=== PATIENT | female | born 1960 | race Caucasian/White ===

== ENCOUNTER 2022-08-08 13:23 | Outpatient (CLI) | payer OTHER, SELFPAY ==
[2022-08-08 21:40] LABS: Chloride* 99 mmol/L (96-114); Potassium* 4.1 mmol/L (3.6-5.1); Sodium* 140 mmol/L (135-149)
[2022-08-08 21:42] LABS: Aspartate Amino Transferase* 33 U/L (12-35); Bilirubin Total* 0.6 mg/dL (0.1-1.5); Carbon Dioxide* 32 mmol/L (20-32); Creatinine* 0.5 mg/dL (0.5-1.5); Estimated Glomerular Filt Rate 105 ml/min; Total Protein* 7.9 g/dL (6.0-8.3)
[2022-08-08 21:43] LABS: Alanine Aminotransferase* 24 U/L (4-35); Alkaline Phosphatase* 75 U/L (40-150); Blood Urea Nitrogen* 9 mg/dL (7-30); Calcium* 9.9 mg/dL (8.4-10.6); Glucose* 104 mg/dL (60-115)
[2022-08-10 23:27] LABS: Rheumatoid Factor <10 IU/mL (0-14)
[2022-08-11 08:25] LABS: Anti-Nuclear Ab(ANA)IgG ELISA Detected (None Detected)
[2022-08-13 01:28] LABS: ANA Pattern Speckled; Antinuclear AntibodyHEp-2 Detected (<1:80)
[2022-08-14 14:30] LABS: Cholesterol* 232 mg/dL (90-199); Triglycerides* 91 mg/dL (40-149)
[2022-08-14 14:31] LABS: HDL Cholesterol* 83 mg/dL (>=50); LDL Cholesterol Calculated 131 mg/dL (<100)
== END 2022-08-08 13:24 | disposition home or self-care (01) ==
PROVIDERS: PCP Family Medicine; Visit Provider Family Medicine
DX: Z01.419 Encounter for gynecological examination (general) (routine) without abnormal findings (principal); E04.1 Nontoxic single thyroid nodule; M25.50 Pain in unspecified joint; R68.89 Other general symptoms and signs; Z13.6 Encounter for screening for cardiovascular disorders
CPT/HCPCS: 80053; 80061; 84443; 86039; 86200; 86431

== ENCOUNTER 2022-08-13 08:57 | Outpatient (CLI) | payer OTHER, SELFPAY ==
--- NOTE | 2022-08-13 09:15 | CRLHL7_ITS ---
For Patients: As a result of the Century Cures Act, medical imaging exams and procedure reports are released immediately into your electronic medical record. You may view this report before your referring provider. If you have questions, please contact your health care provider. INDICATION: ADENOPATHY LEFT NECK, THYROID NODULE COMPARISON: 06/29/2021, 02/04/2017 TECHNIQUE: Lee scale and color Doppler images were acquired of the thyroid gland. FINDINGS: The thyroid gland demonstrates normal uniform echogenicity and has a smooth outer contour. The right lobe measures 4.1 x 1.5 x 1.6 cm and the left lobe measures 4.4 x 1.3 x 1.4 cm in size. Isthmus measures 1 millimeter. There are no suspicious masses or nodules. Incidental hypoechoic nodule inferior pole left thyroid lobe measuring 4 x 3 x 4 millimeters. The color Doppler images demonstrate normal vascularity. There is no evidence of cervical lymphadenopathy or parathyroid mass. IMPRESSION: No suspicious thyroid nodule. No cervical adenopathy. Incidental prominence of the carotid bulb noted on the left. Dictated by Toby Obregon MD @ 08/13/2022 10:33:18 AM (Electronically Signed)
== END 2022-08-13 08:58 | disposition home or self-care (01) ==
LOC: US 08:59
PROVIDERS: PCP Family Medicine; Visit Provider Family Medicine
DX: E04.1 Nontoxic single thyroid nodule (principal)
CPT/HCPCS: 76536

== ENCOUNTER 2022-12-13 15:44 | Outpatient (CLI) | payer OTHER, SELFPAY ==
--- NOTE | 2022-12-13 16:00 | CRLHL7_ITS ---
For Patients: As a result of the Cures Act, medical imaging exams and procedure reports are released immediately into your electronic medical record. You may view this report before your referring provider. If you have questions, please contact your health care provider. Indication: Sinusitis. Technique: Noncontrast axial CT of the paranasal sinuses with coronal reformats are provided. Compared to prior study from May 23, 2020. Findings: The visualized paranasal sinuses are clear. The ostiomeatal complexes are patent bilaterally. Incidental bilateral michelle bullosa. Minimal leftward nasal septal deviation. 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 The visualized intraorbital contents appear within normal limits. Impression: 1. Stable minimal leftward nasal septal deviation with evidence of perforation of the anterior nasal septum. 2. Otherwise, unremarkable CT of the paranasal sinuses. Please note that all CT scans at this facility use dose modulation, iterative reconstruction, and/or weight-based dosing when appropriate to reduce radiation dose to as low as reasonably achievable. Dictated by Holger Abernathy MD @ 12/14/2022 12:52:22 PM (Electronically Signed)
== END 2022-12-13 15:45 | disposition home or self-care (01) ==
LOC: CT 15:45
PROVIDERS: PCP Family Medicine; Visit Provider Family Medicine
DX: J32.9 Chronic sinusitis, unspecified (principal); J34.2 Deviated nasal septum
CPT/HCPCS: 70486

== ENCOUNTER 2022-12-31 14:00 | Outpatient (CLI) | payer OTHER, SELFPAY | END 2022-12-31 14:01 | disposition home or self-care (01) | LOC: NFLDREF 01-03 12:25 | PROVIDERS: PCP Family Medicine; Referring Provider Family Medicine; Visit Provider Family Medicine | DX: E78.00 Pure hypercholesterolemia, unspecified (principal) | CPT/HCPCS: 80061; 84460 ==

== ENCOUNTER 2023-10-13 10:11 | Outpatient (CLI) | payer OTHER, SELFPAY | END 2023-10-13 10:12 | disposition home or self-care (01) | PROVIDERS: PCP Family Medicine; Visit Provider Family Medicine | DX: Z00.00 Encounter for general adult medical examination without abnormal findings (principal); E78.00 Pure hypercholesterolemia, unspecified; I73.00 Raynaud's syndrome without gangrene | CPT/HCPCS: 80053; 80061 ==

== ENCOUNTER 2023-11-21 15:30 | Outpatient (CLI) | payer BC, SELFPAY | END 2023-11-21 15:31 | disposition home or self-care (01) | LOC: NFLDREF 11-26 11:25 | PROVIDERS: PCP Family Medicine; Referring Provider Family Medicine; Visit Provider Family Medicine | DX: R76.8 Other specified abnormal immunological findings in serum (principal) | CPT/HCPCS: 80061; 80076 ==

== ENCOUNTER 2023-12-04 08:10 | Outpatient (CLI) | payer BC, SELFPAY ==
--- NOTE | 2023-12-04 08:15 | CRLHL7_ITS ---
For Patients: As a result of the Century Cures Act, medical imaging exams and procedure reports are released immediately into your electronic medical record. You may view this report before your referring provider. If you have questions, please contact your health care provider. CLINICAL HISTORY: Left lower quadrant pain TECHNIQUE: 2D gooden scale ultrasound. In addition color Doppler and spectral Doppler analysis was performed of the pelvis using a transabdominal approach. Comparison 08/13/2018 FINDINGS: The uterus is absent. The right ovary measures 3.5 x 2.1 x 3.2 cm in size and the left ovary measures 1.8 x 1.4 x 1.6 cm. The ovaries demonstrate normal arterial and venous blood flow on color Doppler and spectral Doppler analysis. There are no suspicious fluid collections within the cul-de-sac. Simple cyst right ovary measuring 1.9 x 1.6 x 1.6 cm. IMPRESSION: Simple right ovarian cyst measuring 1.9 cm. Unremarkable left ovary. No torsion. No excess pelvic free fluid. Dictated by Toby Obregon MD @ 12/04/2023 1:44:54 PM (Electronically Signed)
== END 2023-12-04 08:11 | disposition home or self-care (01) ==
LOC: US 08:11
PROVIDERS: PCP Family Medicine; Visit Provider Family Medicine
DX: R10.32 Left lower quadrant pain (principal); N83.201 Unspecified ovarian cyst, right side
CPT/HCPCS: 76857; 93976

== ENCOUNTER 2024-01-08 15:19 | Outpatient (CLI) | payer BC, SELFPAY ==
--- NOTE | 2024-01-08 15:30 | XR_ITS ---
Patient: JANET STEVENSON Facility:?[facility] Patient ID:?[id number] Site Patient ID:?[id number]. Site :?[id number] Study:?DEXA-Bone Density -01/08/2024 3:55:05 PM Ordering Physician:EROS CALZADA Final Report: DXA BONE MINERAL DENSITY STUDY Reason for exam: Age-related osteoporosis. History of breast cancer. Current height (in): 65. Weight (lb): 110. Menopause age: 41. Ethnicity: White. 1. Have you had a previous hip or vertebral fracture? No. 2. Have you had any fractures during your adult life which did not result from significant trauma (e.g., auto accident)? No. 3. Did either of your parents have a hip fracture? No. 4. Do you smoke? No. 5. Have you ever taken Glucocorticoids? No. 6. Do you have rheumatoid arthritis? No. 7. Do you have secondary osteoporosis? No. 8. Do you drink 3 or more alcoholic drinks per day? No. 9. Are you being treated for osteoporosis? No. 10. Have you ever taken any of the following medications: Actonel, Evista, Fosamax, Miacalcin, Reclast, Boniva, Forteo, HRT (i.e., estrogen/hormone therapy), Protelos, Prolia, Vitamin D, Calcium, other ? please specify. ANSWER: Yes, vitamin D, HRT (i.e., estrogen/hormone therapy), calcium, and Zomerta infusion. 11. Do you have any of the following medical conditions: Anorexia or bulimia, asthma or emphysema, end stage renal disease, hyperparathyroidism, any seizure disorders, cancer, inflammatory bowel diseases, hysterectomy, other ? please specify. ANSWER: Yes, asthma or emphysema, cancer, and hysterectomy. 12. What was your maximum height (inches)? 65. 13. Do you perform weight bearing exercise regularly? No. 14. Do you regularly consume dairy products? Yes. 15. Do you drink caffeinated beverages? No. If female: 16. At what age did your period start? 10. 17. Are you premenopausal? No. 18. How many full-term pregnancies have you had? 0. 19. Have you ever missed your period for more than 6 months in a row (not including or menopause)? Yes. TECHNIQUE: Bone mineral density study was performed using the [employer]. FINDINGS: The results of the study expressed as bone mineral density (BMD) are as follows: Lumbar spine L1 to L4: BMD: 1.105 g/cm2. T-score: 0.5. Z-score: 2.3 Neck Left: BMD: 0.644 g/cm2. T-score: -1.8. Z-score: -0.3 Right: BMD: 0.642 g/cm2. T-score: -1.9. Z-score: -0.3 Total Left: BMD: 0.755 g/cm2. T-score: -1.5. Z-score: -0.3 Right: BMD: 0.799 g/cm2. T-score: -1.2. Z-score: 0.1 IMPRESSION: Osteopenia. FRAX 10-year Fracture Risk Major Osteoporotic Fracture: 8.4% Hip Fracture: 1.3% Reported Risk Factors: [place] () Neck BMD=0.642, BMI=18.3 Caitlyn Kenney M.D. Body/Diagnostic Radiologist [email or web address] D& Transcribed: 12:28 p.mDiamond mota/Dictated by: Caitlyn Kenney MD @ 01/09/2024 3:06:00 AM Signed by:?Caitlyn Kenney MD @01/09/2024 8:19:20 PM (Electronic Signature)
== END 2024-01-08 15:20 | disposition home or self-care (01) ==
LOC: RAD 15:20
PROVIDERS: PCP Family Medicine; Visit Provider Family Medicine
DX: M81.0 Age-related osteoporosis without current pathological fracture (principal); M85.88 Other specified disorders of bone density and structure, other site; Z85.3 Personal history of malignant neoplasm of breast
CPT/HCPCS: 77080

== ENCOUNTER 2024-07-22 11:19 | Outpatient (CLI) | payer MEDICARE, BC, SELFPAY | END 2024-07-22 11:20 | disposition home or self-care (01) | PROVIDERS: PCP Family Medicine; Visit Provider Family Medicine | DX: E78.00 Pure hypercholesterolemia, unspecified (principal); M85.80 Other specified disorders of bone density and structure, unspecified site; J45.909 Unspecified asthma, uncomplicated; Z78.0 Asymptomatic menopausal state | CPT/HCPCS: 80053; 80061; 82306 ==

== ENCOUNTER 2025-07-18 08:48 | Outpatient (CLI) | payer MEDICARE, BC, SELFPAY | END 2025-07-18 08:49 | disposition home or self-care (01) | LOC: NFLDREF 07-21 09:25 | PROVIDERS: PCP Family Medicine; Referring Provider Family Medicine; Visit Provider Family Medicine | DX: E78.00 Pure hypercholesterolemia, unspecified (principal); R10.9 Unspecified abdominal pain; Z13.1 Encounter for screening for diabetes mellitus | CPT/HCPCS: 80053; 80061 ==